=== PATIENT | male | born 1965 | race American Indian/Alaskan Native ===

== ENCOUNTER 2017-01-13 11:11 | Emergency (ER) | payer BC ==
[2017-01-13] MEDS ORDERED: AMIDATE IV ONE (11:41)
[2017-01-13] MEDS ORDERED: NACL 0.9% 500 ML 500 ML ONE (11:48)
[2017-01-13] MEDS ORDERED: NACL 0.9% 500 ML 500 ML IV ONE (11:50)
[2017-01-13 12:18] LABS: Basophils % (Auto) 0.5 % (0.0-1.8); Hematocrit 40.8 % (35.5-45.6); Hemoglobin 13.6 gm/dl (11.8-15.2); Mean Corpuscular HGB Conc 33 % (32-34); Mean Corpuscular Hemoglobin 29 pg (28-32); Mean Corpuscular Volume 86 fl (84-94); Platelet Count 291 K/mm3 (140-440); Red Blood Count 4.75 M/mm3 (3.65-5.03); Red Cell Distribution Width 14.5 % (13.2-15.2)
[2017-01-13 12:33] LABS: Albumin 4.3 g/dL (3.9-5); BUN/Creatinine Ratio 8.88; Bilirubin,Total 0.4 mg/dL (0.1-1.2); Calcium 9.5 mg/dL (8.4-10.2); Chloride 93.9 mmol/L (98-107); Magnesium 1.2 mg/dL (1.7-2.3); Potassium 3.2 mmol/L (3.6-5.0); Total Protein 8.4 g/dL (6.3-8.2)
[2017-01-13] MEDS ORDERED: TYLENOL PO ONE (12:47)
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
[2017-01-13 14:49] VITALS: BP 153/102
--- NOTE | 2017-01-14 09:34 | XRay Report ---
AP CHEST : 01/13/17 12:54 CLINICAL: Chest pain. COMPARISON:04/05/11 FINDINGS: Normal heart and pulmonary vessels. The lungs are slightly underexpanded but clear. The bones and soft tissues are unremarkable. IMPRESSION: Normal chest.
== END 2017-01-13 14:52 | disposition home or self-care (01) ==
LOC: ED 11:11
DX: I47.1 Supraventricular tachycardia (principal); E11.22 Type 2 diabetes mellitus with diabetic chronic kidney disease; I12.9 Hypertensive chronic kidney disease with stage 1 through stage 4 chronic kidney disease, or unspecified chronic kidney disease; N18.9 Chronic kidney disease, unspecified; I50.9 Heart failure, unspecified; Z91.013 Allergy to seafood
CPT/HCPCS: 36415; 71010; 80053; 83735; 84484; 85025; 92960; 93005; 93010; 99284; J7040